=== PATIENT | female | born 1930 | race Caucasian/White ===

== ENCOUNTER 2017-12-23 12:20 | Inpatient (IN) | payer MEDICARE, BC ==
[2017-12-23] MEDS ORDERED: Acetaminophen 325 MG Tab PO PRN (12:54)
[2017-12-23] MEDS ORDERED: Acetaminophen 650 MG Supp RECTAL PRN (12:54)
[2017-12-23] MEDS ORDERED: Calcium Carbonate 500 MG Tab.Chew PO PRN (12:54)
[2017-12-23] MEDS ORDERED: Ondansetron 4 MG/2 ML SDV IVPUSH PRN (12:55)
[2017-12-23] MEDS ORDERED: Albuterol/Ipratropium 3.0-0.5 MG/3 ML Neb Soln INH PRN (12:56)
[2017-12-23] MEDS ORDERED: Dextrose 5%-Lactated Ringers 1,000 ML IV SCH (13:00)
[2017-12-23] MEDS: Pantoprazole 40 MG Vial IV SCH (15:11)
--- NOTE | 2017-12-23 16:07 | PCM.HP ---
H&P History of Present Illness - General Date of Service: 12/23/17 Admit Problem/Dx: Admission Diagnosis/Problem Admission Diagnosis/Problem Dehydration Source of Information: Patient, Family History Limitations: Reports: Altered Mental Status, Other (dementia) - History of Present Illness Initial Comments - Free Text/Narative: Sherlyn was seen in Internal Medicine for abdominal pain on 12/20/17 for a history of 2 - 3 days of nausea, vomiting and anorexia. She had a CT Scan on Saturday and Kathi Kimble asked Surgery Dept to see her for a possible small bowel obstruction. Sherlyn is unable to answer any questions due to confusion and dementia. Most of the history is from daughter. Over the weekend she hasn't been eating or drinking very much. She does state she is hungry. Having diarrhea now. Onset of Symptoms: Reports: Gradual Symptom Onset Date: 12/20/17 Duration of Symptoms: Reports: Day(s): Location: Reports: Abdomen Improves with: Reports: None Worsens with: Reports: None Associated Symptoms: Reports: No Other Symptoms - Related Data Allergies/Adverse Reactions: Allergies Allergy/AdvReac Type Severity Reaction Status Date / Time erythromycin base Allergy Cannot Verified 12/23/17 12:49 Remember Home Medications: Home Meds Aspirin 1 tab PO DAILY 04/25/16 [History] Albuterol/Ipratropium [DuoNeb 3.0-0.5 MG/3 ML] 3 ml INH Q4HR PRN 04/26/16 [ History] Fluticasone/Salmeterol [Advair 250-50 Diskus] 1 inhalation IN BID 04/26/16 [ History] Furosemide [Lasix] 20 mg PO DAILY 04/26/16 [History] Nepafenac [[place]] 1 drop OP DAILY 05/01/16 [History] Fexofenadine HCl 60 mg PO PRN 12/23/17 [History] Past Medical History HEENT History: Reports: Cataract, Hard of Hearing Respiratory History: Reports: Bronchitis, Recurrent, COPD [employer] History: Reports: Other OB/BYN History: Hx Caesarian Musculoskeletal History: Reports: Other (See Below) Other Musculoskeletal History: right knee pain - Infectious Disease History Infectious Disease History: Reports: Chicken Pox, Influenza, Measles, Mumps, Shingles - Past Surgical History HEENT Surgical History: Reports: Cataract Surgery Respiratory Surgical History: Reports: None Social & Family History - Family History Family Medical History: Noncontributory - Tobacco Use Smoking Status *Q: Never Smoker Second Hand Smoke Exposure: No - Caffeine Use Caffeine Use: Reports: Coffee, Soda - Recreational Drug Use Recreational Drug Use: No H&P Review of Systems - Review of Systems: Review Of Systems: ROS reveals no pertinent complaints other than HPI. Exam - Exam Exam: See Below - Vital Signs Vital Signs: Last Vital Signs Temp 99.3 F 12/23/17 15:28 Pulse 88 12/23/17 15:28 Resp 18 12/23/17 15:28 BP 131/77 12/23/17 15:28 Pulse Ox 92 L 12/23/17 15:28 Weight: 166 lb 9.6 oz - Exam General: Cooperative, Other (No distress. ) HEENT: PERRLA Neck: Supple, Trachea Midline Lungs: Clear to Auscultation, Normal Respiratory Effort Cardiovascular: Regular Rate, Regular Rhythm GI/Abdominal Exam: Normal Bowel Sounds, Soft, Non-Tender (Female) Exam: Deferred Rectal (Female) Exam: Deferred Back Exam: Normal Inspection, Full Range of Motion Extremities: Normal Inspection, Normal Range of Motion Skin: Warm, Dry, Intact Neurological: Cranial Nerves Intact, Reflexes Equal Bilateral Neuro Extensive - Mental Status: Normal Mood/Affect, Other (Dementia. ) Neuro Extensive - Motor, Sensory, Reflexes: CN II-XII Intact, Normal Gait Psychiatric: Normal Mood - Patient Data Lab Results Last 24 hrs: Laboratory Results - last 24 hr 12/23/17 12/23/17 12/23/17 Range/Units 13:05 13:05 13:05 WBC 9.5 (4.5-11.0) K/uL RBC 5.60 H (3.30-5.50) M/uL Hgb 15.1 H (12.0-15.0) g/dL Hct 46.3 (36.0-48.0) % MCV 83 (80-98) fL MCH 27 (27-31) pg MCHC 33 (32-36) % Plt Count 502 H (150-400) K/uL Sodium 135 L (140-148) mmol/L Potassium 3.7 (3.6-5.2) mmol/L Chloride 99 L (100-108) mmol/L Carbon Dioxide 27 (21-32) mmol/L Anion Gap 12.7 (5.0-14.0) mmol/L BUN 27 H (7-18) mg/dL Creatinine 1.2 H (0.6-1.0) mg/dL Est Cr Clr Drug Dosing 22.83 mL/min Estimated GFR (MDRD) 42 L (>60) Glucose 104 (74-106) mg/dL Hemoglobin A1c (4.5-6.2) % Calcium 9.6 (8.5-10.1) mg/dL Phosphorus 3.5 (2.5-4.9) mg/dL Magnesium 2.3 (1.8-2.4) mg/dL Total Bilirubin 0.9 (0.2-1.0) mg/dL AST 17 (15-37) U/L ALT 15 (12-78) U/L Alkaline Phosphatase 69 (46-116) U/L Total Protein 7.2 (6.4-8.2) g/dL Albumin 2.9 L (3.4-5.0) g/dL Globulin 4.3 H (2.3-3.5) g/dL Albumin/Globulin Ratio 0.7 L (1.2-2.2) / Range/Units 13:05 WBC (4.5-11.0) K/uL RBC (3.30-5.50) M/uL Hgb (12.0-15.0) g/dL Hct (36.0-48.0) % MCV (80-98) fL MCH (27-31) pg MCHC (32-36) % Plt Count (150-400) K/uL Sodium (140-148) mmol/L Potassium (3.6-5.2) mmol/L Chloride (100-108) mmol/L Carbon Dioxide (21-32) mmol/L Anion Gap (5.0-14.0) mmol/L BUN (7-18) mg/dL Creatinine (0.6-1.0) mg/dL Est Cr Clr Drug Dosing mL/min Estimated GFR (MDRD) (>60) Glucose (74-106) mg/dL Hemoglobin A1c 6.7 H (4.5-6.2) % Calcium (8.5-10.1) mg/dL Phosphorus (2.5-4.9) mg/dL Magnesium (1.8-2.4) mg/dL Total Bilirubin (0.2-1.0) mg/dL AST (15-37) U/L ALT (12-78) U/L Alkaline Phosphatase (46-116) U/L Total Protein (6.4-8.2) g/dL Albumin (3.4-5.0) g/dL Globulin (2.3-3.5) g/dL Albumin/Globulin Ratio (1.2-2.2) Result Diagrams: 12/23/17 13:05 12/23/17 13:05 - Problem List (1) Primary osteoarthritis of both knees SNOMED Code(s): 777779309, 356248408199062, 909007191499094 ICD Code: M17.0 - BILATERAL PRIMARY OSTEOARTHRITIS OF KNEE Status: Acute Current Visit: No (2) Partial obstruction of small intestine SNOMED Code(s): 688838418 ICD Code: K56.600 - PARTIAL INTESTINAL OBSTRUCTION, UNSPECIFIED TO CAUSE Status: Acute Current Visit: Yes (3) Hyperlipidemia SNOMED Code(s): 53786737 ICD Code: E78.5 - HYPERLIPIDEMIA, UNSPECIFIED Status: Acute Current Visit : Yes Problem List Initiated/Reviewed/Updated: Yes Orders Last 24hrs: Active Orders 24 hr Category Date Time Status Admission Status [Patient Status] [ADT] Routine ADT 12/23/17 12:10 Active EKG Documentation Completion [RC] ASDIRECTED Care 12/23/17 12:58 Active Intake and Output [RC] QSHIFT Care 12/23/17 12:56 Active Up With Assistance [RC] ASDIRECTED Care 12/23/17 12:52 Active Vital Signs [RC] Q4H Care 12/23/17 12:52 Active Regular Diet [DIET] Diet 12/23/17 Dinner Active Chest 2V [CR] Routine Exams 12/23/17 12:58 Taken CULTURE URINE [RM] Routine Lab 12/23/17 12:53 Ordered UA W/MICROSCOPIC [URIN] Routine Lab 12/23/17 12:53 Ordered Acetaminophen [Tylenol] Med 12/23/17 12:54 Active 650 mg PO Q4H PRN Acetaminophen [Tylenol] Med 12/23/17 12:54 Active 650 mg RECTAL Q4H PRN Albuterol/Ipratropium [DuoNeb 3.0-0.5 MG/3 ML] Med 12/23/17 12:56 Active 3 ml INH Q4H PRN Calcium Carbonate [Tums] Med 12/23/17 12:54 Active 500 - 1,000 mg PO Q4H PRN Dextrose 5%-Lactated Ringers 1,000 ml Med 12/23/17 13:00 Active IV ASDIRECTED Furosemide [Lasix] Med 12/24/17 09:00 Active 20 mg PO DAILY Mometasone/Formoterol [Dulera 200-5 MCG] Med 12/23/17 21:00 Active 2 puff IH BIDRT Ondansetron [Zofran] Med 12/23/17 12:55 Active 4 mg IVPUSH Q4H PRN Pantoprazole [ProTONIX IV] Med 12/23/17 14:00 Active 40 mg IV DAILY@1130 SCD [Sequential Compression Device] [OM.PC] Routine Oth 12/23/17 12:54 Ordered EKG 12 Lead [EK] Routine Ther 12/23/17 12:57 Ordered Medication Orders Acetaminophen (Tylenol) 650 mg PO Q4H PRN PRN Reason: ANALGESIA/FEVER Acetaminophen (Tylenol) 650 mg RECTAL Q4H PRN PRN Reason: ANALGESIA/FEVER Albuterol/Ipratropium (Duoneb 3.0-0.5 Mg/3 Ml) 3 ml INH Q4H PRN PRN Reason: SHORTNESS OF BREATH Calcium Carbonate/Glycine (Tums) 500 - 1,000 mg PO Q4H PRN PRN Reason: DYSPEPSIA Furosemide (Lasix) 20 mg PO DAILY [facility] Dextrose/Lactated Ringer's (Dextrose 5%-Lactated Ringers) 1,000 mls @ 100 mls/ hr IV ASDIRECTED VIOLETA Mometasone Furoate/Formoterol Fumar (Dulera 200-5 Mcg) 2 puff IH BIDRT VIOLETA Ondansetron HCl (Zofran) 4 mg IVPUSH Q4H PRN PRN Reason: NAUSEA Pantoprazole Sodium (Protonix Iv) 40 mg IV DAILY@1130 [facility] Last Admin: 12/23/17 15:11 Dose: 40 mg Assessment/Plan Comment:: Plan: Admit to Inpatient Plan of hospital stay 2 nights and 3 days. See copy of orders in EMR. Nabila Kimble
[2017-12-23] MEDS: Formoterol/Mometasone 200-5 MCG 8.8 GM Inhaler IH SCH (20:15)
[2017-12-24] MEDS: Formoterol/Mometasone 200-5 MCG 8.8 GM Inhaler IH SCH ×2 (07:30→20:52)
[2017-12-24] MEDS: Loratadine 10 MG Tab PO SCH (08:29)
[2017-12-24] MEDS: Furosemide 20 MG Tab PO SCH (08:29)
[2017-12-24] MEDS ORDERED: Dextrose 5%-Lactated Ringers 1,000 ML IV SCH (09:15)
--- NOTE | 2017-12-24 09:21 | CR ---
Abdomen 2V AP Flat Upright Comparison: Correlation made to abdomen pelvis CT from 3 days prior. FINDINGS: On the upright view there are a few scattered air-fluid levels seen within small bowel. The caliber of the small bowel appears decreased. Significant distention is not seen. No free air is dem onstrated. Impression: 1. Evidence for decrease caliber small bowel since the prior CT. The finding may reflect a resolving obstruction or ileus.
--- NOTE | 2017-12-24 09:23 | CR ---
Chest 2V FINDINGS: The heart and vascular structures are normal in appearance. No infiltrates or effusions are demonstrated. There is mild elevation of the right hemidiaphragm. The skeletal structures are unrema rkable. IMPRESSION: 1. No acute findings.
[2017-12-24] MEDS ORDERED: Bisacodyl 5 MG Tab PO ONE (09:30)
[2017-12-24] MEDS: Docusate Sodium 100 MG Cap PO SCH ×2 (10:24→20:52)
[2017-12-24] MEDS: Pantoprazole 40 MG Vial IV SCH (10:30)
[2017-12-24] MEDS ORDERED: Magnesium Hydroxide 400 MG/5 ML Susp 30 ML Cup PO ONE (10:30)
[2017-12-25] MEDS: Formoterol/Mometasone 200-5 MCG 8.8 GM Inhaler IH SCH ×2 (07:44→21:18)
--- NOTE | 2017-12-25 10:19 | CR ---
Abdomen 2V AP Flat Upright Comparison: Previous day. FINDINGS: There is interval decrease in caliber of loops of small bowel. There are few air-fluid leve ls remaining on the upright view. There is no free air. Impression: 1. Interval decrease in caliber of small bowel.
--- NOTE | 2017-12-25 10:19 | PN ---
DATE OF SERVICE: 12/25/2017 SUBJECTIVE: Sherlyn has had 3 bowel movements. C. diff is negative. Vital signs have been stable. Oral intake 1220. Has voided several times. Oral intake 50% of breakfast, 35% of lunch, and 50% of dinner. REVIEW OF SYSTEMS: HEENT: Negative. NECK: Negative. HEART: No chest pain, shortness of breath, fast or irregular heartbeat. LUNGS: No cough. ABDOMEN: Denies pain. EXTREMITIES: Revealed trace peripheral edema. NEURO: Some unsteadiness when ambulating. Ambulates with assistance of one while in the hospital. Confusion, intermittently some dementia noted. SKIN: Without rash. Remainder of review of systems negative for any pertinent positives and negatives. OBJECTIVE: GENERAL: Sherlyn Fatima is a pleasant 87-year-old female. VITAL SIGNS: Height is 4 feet 9.87 inches. Weight is 166 pounds. TPR is 96.7, 65, 16. Blood pressure 146/81. HEENT: Negative. NECK: Supple. HEART: Regular rate and rhythm. LUNGS: Clear. ABDOMEN: Soft, nontender. EXTREMITIES: Revealed trace peripheral edema. SCDs are currently not on. NEURO: Intact. She seems to have no confusion. Right now, answers questions appropriate. SKIN: Negative for rash. ASSESSMENT: 1. Dehydration. 2. Partial small bowel obstruction resolved on its own, questionable gastrointestinal virus. 3. Altered mental status, dementia. 4. Hard of hearing. PLAN: 1. Discharge planning to help setup placement at [facility] and will be receiving occupational and physical therapy. It is not safe to discharge. Has not been eating and drinking and taking her prescription medications, saline lock IV. 2. We will evaluate p.r.n. or in a.m. 3. Plan to discharge to [facility] in the a.m. Nabila Bah PA-C /[id number]
[2017-12-25] MEDS: Pantoprazole 40 MG Vial IV SCH (10:36)
[2017-12-25] MEDS: Loratadine 10 MG Tab PO SCH (10:36)
[2017-12-25] MEDS: Furosemide 20 MG Tab PO SCH (10:36)
[2017-12-25] MEDS: Docusate Sodium 100 MG Cap PO SCH ×2 (10:36→21:17)
[2017-12-26] MEDS: Formoterol/Mometasone 200-5 MCG 8.8 GM Inhaler IH SCH (07:31)
--- NOTE | 2017-12-26 08:11 | PN ---
DATE OF SERVICE: 12/24/2017 The patient has been afebrile with stable vital signs. Oral intake overnight has been quite good. She is not complaining of any abdominal pain. Given this, we will certainly hold off on doing anything surgically. The abdominal x-ray looks fairly unremarkable. She does have a fair bit of stool in the colon, but minimal air in the small bowel. We will continue the regular diet today, give her some bowel stimulation, restart her pertinent medications, and recheck an abdominal x-ray and some labs in the morning. Alfredo Shaikh MD /[id number]
--- NOTE | 2017-12-26 08:59 | DISCH ---
ADMISSION DIAGNOSES: 1. Gastroenteritis. 2. Dehydration. 3. New diagnosis of diabetes type 2. Hemoglobin A1c 6.7 on admission. 4. Altered mental status. 5. Dementia. 6. Hard of hearing. 7. Hyperlipidemia. 8. Primary osteoarthritis of both knees. 9. Chronic obstructive pulmonary disease. 10.Asthma. DISCHARGE DIAGNOSES: 1. Resolution of dehydration secondary to gastroenteritis. 2. New diagnosis of diabetes mellitus type 2. Hemoglobin A1c of 6.7. HOSPITAL COURSE: Sherlyn was admitted as a direct admit from the hospital on 12/23/2017 with dehydration, gastroenteritis with a CT scan suggesting either partial small bowel obstruction versus diverticulosis. Sherlyn was admitted to the hospital. She had no nausea, vomiting, diarrhea. Chest x-ray and EKG were normal. She had a series of abdominal x-rays which showed resolving partial bowel obstruction. Her appetite was good. Activity good. She was up independently but did report weakness. Blood sugars were checked and the day prior to discharge, it was 113. She was able to be discharged to [facility] as a new admission on 12/26/2017. REVIEW OF SYSTEMS: CONSTITUTIONAL: Has had no fever, chills, night sweats, or fatigue. Weight has been stable. No excessive thirst or urination. NECK: Supple. HEART: No chest pain, shortness of breath, fast or irregular heartbeat. LUNGS: No cough. Some shortness of breath with exertion. ABDOMEN: No nausea, vomiting, diarrhea, constipation. No red or black stools. : Negative for any UTI signs and symptoms. Has some occasional stress incontinence. EXTREMITIES: Reports knee pains and stiffness which is chronic. No swelling in the extremities. NEUROLOGIC: Cranial nerves II through XII intact. Memory impaired with some confusion. PSYCHIATRIC: Mood and affect are appropriate. Negative for anxiety or depression. Remainder of review of systems negative for any pertinent positives and negatives. OBJECTIVE: GENERAL: Sherlyn Fatima is a pleasant 87-year-old female. VITAL SIGNS: Height is 4 feet 9.8 inches, weight is 166 pounds. TPR is 98.6, 88, 16, blood pressure 121/72. HEENT: Negative. NECK: Supple. HEART: Regular rate and rhythm. LUNGS: Clear. ABDOMEN: Soft, nontender. GENITOURINARY: Deferred. EXTREMITIES: With some trace peripheral edema. Full range of motion. NEUROLOGIC: Cranial nerves II through XII intact. PSYCHIATRIC: Mood and affect appropriate. Very alert today and understands that she will be going to [facility] and states she feels like that is a good idea as she is feeling "weak." DISPOSITION: Discharged to [facility]. FOLLOWUP APPOINTMENT: With Dr. Shar Gregory in 1 week for new diagnosis of diabetes type 2, hemoglobin A1c of 6.7, and recent hospitalization for dehydration following gastroenteritis. MEDICATIONS: She is to resume her home medications; Tylenol 650 mg q.4 h. p.r.n. pain, DuoNeb 3 mL inhalation every 4 hours p.r.n. shortness of breath, Tums 500 to 1000 mg every 4 hours p.r.n. heartburn, Amberly 60 mg p.o. p.r.n. allergies, aspirin 325 mg one p.o. daily, Advair 250/50 Diskus one inhalation b.i.d., Lasix 20 mg p.o. daily, nepafenac 3 mL drops one drop OP daily. DISCHARGE DIET: Diet after discharge; regular diet as tolerated. Low sodium. Drink 8 to 10 glasses of water a day. ACTIVITY: As tolerated. Physical Therapy and occupational therapy evaluation and treat as needed at [facility]. Shower/bathing; may shower. May use whirlpool. Notify provider if any fever, increased pain, nausea, or vomiting. SPECIAL INSTRUCTIONS: Check blood sugars 3 times a day and record results and bring to clinic appointment to have Dr. Shar Gregory evaluate and treat accordingly.
--- NOTE | 2017-12-26 09:25 | CR ---
Abdomen 2V AP Flat Upright Comparison: Previous day. FINDINGS: There has been mild interval increase in caliber of loops of small bowel in the central abd omen. There are scattered air-fluid levels. There is no free air. Impression: 1. Continued findings of ileus versus partial small bowel obstruction. Mild increase in caliber of lo ops of small bowel.
[2017-12-26] MEDS: Docusate Sodium 100 MG Cap PO SCH (09:41)
[2017-12-26] MEDS: Loratadine 10 MG Tab PO SCH (09:42)
[2017-12-26] MEDS: Furosemide 20 MG Tab PO SCH (09:42)
[2017-12-26 11:38] VITALS: BP 118/45
== END 2017-12-26 12:55 | DRG 392 ==
LOC: JP.MS 12:20
PROVIDERS: ADMIT Surgery; ATTEND Surgery
DX: K52.89 Other specified noninfective gastroenteritis and colitis (principal); K56.600 Partial intestinal obstruction, unspecified as to cause; E86.0 Dehydration; E11.9 Type 2 diabetes mellitus without complications; H91.90 Unspecified hearing loss, unspecified ear; Z88.1 Allergy status to other antibiotic agents; Z79.82 Long term (current) use of aspirin; M17.0 Bilateral primary osteoarthritis of knee; F03.90 Unspecified dementia, unspecified severity, without behavioral disturbance, psychotic disturbance, mood disturbance, and anxiety; J44.9 Chronic obstructive pulmonary disease, unspecified; E78.5 Hyperlipidemia, unspecified
CPT/HCPCS: 36415; 71046; 71046-26; 74019; 74019-26; 80053; 81001; 83036; 83735; 84100; 85027; 87086; 93005; 94640-76; 97110-GP; 97162-GP; 97530-GP; A9270-GY; C9113; J7042